=== PATIENT | male | born 1965 | race Caucasian/White ===

== ENCOUNTER 2016-05-08 18:52 | Emergency (ER) | payer OTHER ==
[~2016-05-08 18:52] MED LIST: PERCOCET 325 MG1 TA2 PO; XANAX0.25 M1 PO
== END 2016-05-09 06:15 | disposition other institution (70) ==
LOC: ED 18:52
DX: R45.851 Suicidal ideations (principal); F31.9 Bipolar disorder, unspecified; F14.14 Cocaine abuse with cocaine-induced mood disorder; F17.210 Nicotine dependence, cigarettes, uncomplicated